=== PATIENT | male | born 1985 | race Caucasian/White ===

== ENCOUNTER 2023-05-17 06:33 | Day surgery (SDC) | payer OTHER, SELFPAY ==
[2023-05-09 15:23] VITALS: BMI 37.8
--- NOTE | 2023-05-09 15:30 | PC.NURSE ---
Report to the Outpatient Waiting Room, entrance under the green pavilion located off [facility], at time 0815___ on date _05/17/23 . Planned Procedure Time: _1015 . Time changes happen often and if your time is changed the preop area will call you the afternoon before. - You and your visitor will be asked to self-screen and do not enter if you have any COVID symptoms. - A mask is optional within the hospital at this time. Patients may have clear liquids (water, carbonated beverages, clear teas, apple juice) until 3 hours prior to surgery with a maximum of 20 ounces. - No food from midnight until time of surgery - Take the following medications with a SIP of water the morning of surgery: ___NONE DO NOT STOP ANY OF YOUR OTHER PRESCRIPTION MEDICATIONS PRIOR TO SURGERY ?EXCEPT THE FOLLOWING Medications to discontinue per physician NONE Date to take last dose NONE Please no make-up, nail icelandic, hairspray, perfume, deodorant, or body powder the day of surgery. No jewelry (including any body piercings) or valuables the day of surgery, leave them at home. Please take a shower or bath the night before, or the morning of, surgery with an antibacterial soap. Wear comfortable, loose fitting clothing. - Jewelry must be removed prior to entering the operating room. Rings and piercings that are not removed may be cut off. - The hospital will not accept responsibility for valuables. - Please leave all valuables, including medications, at home the day of surgery. If you are going home after surgery, a licensed driver's license examiner must drive you home. - NO public transportation without another adult if you receive anesthesia. - We recommend that an adult stay with you for 24 hours following discharge. - We also recommend that you do not drive, make important decision, drink alcoholic beverages, or take any drugs that were not prescribed by your health care provider for at least 24 hours after your discharge time. Follow any additional instructions given to you from your surgeon. If you or anyone in your household have experienced Covid symptoms in the past week, please notify your surgeon or the nurse liaison at the phone number below for possible testing. Telephone instructions given to ADAM and asked if any additional questions and then verbalized understanding. Patient advised to call surgeon office or pre surgery nurse liaison [phone] if any additional questions.
--- NOTE | 2023-05-15 13:35 | WPDANESEPPF ---
Anes - Initial Pre Proc Eval Procedure: Operation Date: 05/17/23 10:15 Proposed Procedures p Excision of Left Dorsal Wrist Subcutaneous Mass - Goyo Romero MD Date/Time: 05/15/23 13:35 Surgeon: Goyo Romero MD Pre Op Diagnosis: left dorsal wrist subcutaneous mass Patient Data Age: 37 Gender: M Height: 1.6 m Weight: 97 kg Allergies Allergy/AdvReac Type Severity Reaction Status Date / Time No Known Allergies Allergy Verified 05/17/23 08:27 Home Medications Medication Instructions Recorded Confirmed Type tramadol 50 mg tablet 50 - 100 mg PO Q6H PRN pain #8 tabs 05/17/23 Rx Patient hx anesthesia problems: none Family hx anesthesia problems: none Results Review: All pre-operative results and documents have been reviewed as part of the pre-operative evaluation. [facility] Past Medical History Medical History (Updated 05/15/23 @ 13:35 by Farrukh Ribera MD) Obesity Social History Social History Smoking status: Never smoker Alcohol intake: never Substance use: never Living arrangements: with family Spiritual care concerns: No Anes - Eval Final PreProcedure Day of Procedure 05/15/23 13:35 Patient weight: obese Heart: regular rate and rhythm Lungs: clear to auscultation and normal air movement Airway: Mallampati scale class II Neurological: alert and oriented Last oral intake: >/= 8 hours ASA classification: II Emergent: no Anesthetic plan: proceed Anesthesia type and monitoring: general GIVS and LMA Results Review: All pre-operative results and documents have been reviewed as part of the pre-operative evaluation. Informed Consent: The patient's anesthetic plan and its attendant risks and benefits were discussed with the patient/family/POA. Questions were solicited and answers provided to the satisfaction of the patient/family/POA.
--- NOTE | 2023-05-17 08:04 | WPDHPUPDATE1 ---
History and Physical Update Update Date/Time: 05/17/23 08:04 History and Physical has been reviewed, including an updated exam of the patient. There are NO changes in the patient's condition. Risks, benefits, and alternatives have been discussed and questions answered. Patient agrees to proceed with procedure.
[2023-05-17 08:05] VITALS: BP 126/82; PULSE 71; RESP 16; TEMP 36.2; O2SAT 97
[2023-05-17] MEDS: LACTATED RINGERS 1,000 ML 30 ML IV CONT (08:50)
[2023-05-17] MEDS: LIDO 1%/EPINEPHRINE 1:100,000 50 ML VIAL INFILTRATE (10:15)
[2023-05-17 10:33] VITALS: BP 96/65; PULSE 82; RESP 14; O2SAT 95
--- NOTE | 2023-05-17 10:40 | P.OP_ITS ---
Procedure Note - Detailed Date of Procedure 05/17/23 Pre-op Diagnosis left dorsal wrist subcutaneous mass Post-op Diagnosis Other (Ganglion cyst left dorsal wrist) Procedure Performed Excision of ganglion cyst left dorsal wrist Surgeon Goyo Romero MD [employer] [facility] Description of Procedure The mass on the dorsum of the left wrist was marked in the holding area. The patient was then taken to the operating room where he was placed supine on the operating table. Was given IV sedation as the extremity was prepped and draped in usual fashion. A time-out was held and confirmed. The site was locally infiltrated with 1% lidocaine with epinephrine. The extremity was exsanguinated and tourniquet inflated to 250 mmHg. The incision was made as marked and dissection to the subcutaneous tissue revealed the cyst. The cyst was released around its periphery with sharp and blunt dissection down to its origin at the extensor wrist capsule. It did not seem to penetrate that area and came out intact. It is a 1 cm firm walled mass with clear gel contained within. Bleeding points were electrocoagulated as the tourniquet was released. Wound closure consisted of interrupted intradermal 4-0 Monocryl sutures. Our usual bandage was applied. The patient was discharged from the operating room stable condition has a prescription for tramadol number 8 . Estimated Blood Loss 2 Drains No Packing No Pathology None sent Condition Stable Disposition Same day
[2023-05-17 11:03] VITALS: BP 113/73; PULSE 63; RESP 15
[2023-05-17 11:33] VITALS: BP 119/68; PULSE 83; RESP 16
== END 2023-05-17 11:35 | disposition home or self-care (01) ==
PROVIDERS: PCP Family Medicine; Visit Provider Plastic Surgery
PROC: (CPT 25111; principal; 2023-05-17 10:15)
DX: M67.432 Ganglion, left wrist (principal); E66.9 Obesity, unspecified; Z68.34 Body mass index [BMI] 34.0-34.9, adult
CPT/HCPCS: 25111; A9270; J2250; J2405; J2704; J3010; J7120